=== PATIENT | female | born 1950 | race Caucasian/White ===

== ENCOUNTER → 2016-10-28 | Day surgery (SDC) | payer MEDICARE ==
[~2016-10-28] MED LIST: ADVIL200 MG PO; CALCIUM + VITA1 EACH PO; ZOCOR20 MG PO
--- NOTE | ~2016-10-28 | OR ---
PATIENT'S NAME: FRED LAWSON [facility] AGE: 66 Y [address] ROOM: [place] [address] LOCATION: [facility] ADMIT DATE: 10/28/2016 OR/Procedure Report DISCHARGE DATE: FAMILY PHYSICIAN: Shasha Chilel MD ATTENDING PHYSICIAN: Sina Hurt SURGEON: Danny Chow MD SWEEPER OPERATOR [place]: DATE OF PROCEDURE: 10/28/2016 PROCEDURE: Right posterior interosseous steroid injection. INDICATION: Posterior interosseous syndrome. Risks, benefits, and alternatives were explained to the patient. She wished to proceed. The right arm was extended out about 90 degrees. Ultrasound was used to visualize the posterior interosseous nerve traverses the supinator muscle. The area was cleaned with 2% chlorhexidine. An ultrasound was used for guidance of a 25 gauge inch and half needle. Once the needle was felt to be in position, a mixture of 3 mL of 0.25% bupivacaine and 40 mg of Depo- Medrol were injected without complication. Needle was removed. Hemostasis achieved. COMPLICATIONS: None. BLOOD LOSS: None. DANNY CHOW MD JJP/modl /[id number] d: 10/28/16 1810 t: 11/12/16 1344, OPERATIVE SUMMARY
== END | disposition disaster alternative care site (69) ==
LOC: GPOC 10-21 09:00 → GSDC 12:33 → GPOC 13:00
PROC: 3E0U3GC Introduction of Other Therapeutic Substance into Joints, Percutaneous Approach (ICD-10-PCS; principal; 2016-10-28)
DX: G56.81 Other specified mononeuropathies of right upper limb (principal); M51.16 Intervertebral disc disorders with radiculopathy, lumbar region; Z88.0 Allergy status to penicillin; Z88.2 Allergy status to sulfonamides; Z88.8 Allergy status to other drugs, medicaments and biological substances; Z98.890 Other specified postprocedural states; Z79.899 Other long term (current) drug therapy; Z90.710 Acquired absence of both cervix and uterus
CPT/HCPCS: J1030